=== PATIENT | female | born 1950 ===

== ENCOUNTER 2018-02-15 05:00 | Outpatient (CLI) | payer OTHER ==
[~2018-02-15 05:00] MED LIST: SIMVASTATIN10 MG PO; SYNTHROID50 MCG PO
== END 2018-02-15 07:00 | disposition home or self-care (01) ==
LOC: EKG 05:00 → EDSTATUS 11:00 → CIR.AMB 11:00
DX: C54.1 Malignant neoplasm of endometrium (principal); Z01.810 Encounter for preprocedural cardiovascular examination